=== PATIENT | male | born 1975 | race Caucasian/White ===

== ENCOUNTER 2022-03-08 21:40 | Emergency (ER) | payer BC ==
[~2022-03-08] VITALS: Ht 185.4 cm; Wt 106.6 kg
[2022-03-08] MEDS ORDERED: ATORVASTATIN CA20 MG (22:02)
[2022-03-09] MEDS ORDERED: KETO10TA2 PO (01:15)
== END 2022-03-09 01:56 ==
LOC: ER 21:40
DX: M94.0 Chondrocostal junction syndrome [Tietze] (principal)